=== PATIENT | female | born 1985 ===

== ENCOUNTER 2021-07-04 09:15 | Outpatient (CLI) | payer OTHER ==
[~2021-07-04 09:15] MED LIST: BACTRIM DS TABL1 TAB PO; PYRIDIUM200 MG PO
== END 2021-07-04 09:26 | disposition home or self-care (01) ==
LOC: RX STUDY 09:15
PROVIDERS: ATTEND Specialist
DX: Q51.9 Congenital malformation of uterus and cervix, unspecified (principal)